=== PATIENT | female | born 1965 | race Caucasian/White ===

== ENCOUNTER → 2017-03-07 | Outpatient (CLI) | payer BC ==
[~2017-03-07] MED LIST: DUEXIS 26.6 MG-1 TAB PO; LEVOXYL0.075 MG PO
== END ==
LOC: COL.VAS 11:04
DX: I86.8 Varicose veins of other specified sites (principal); I82.602 Acute embolism and thrombosis of unspecified veins of left upper extremity; M79.89 Other specified soft tissue disorders

== ENCOUNTER → 2017-12-30 | Outpatient (CLI) | payer BC | LOC: COL.RAD 09:01 | DX: M25.511 Pain in right shoulder (principal); C34.31 Malignant neoplasm of lower lobe, right bronchus or lung | CPT/HCPCS: A9503 ==

== ENCOUNTER 2018-04-13 17:28 | Emergency (ER) | payer BC ==
[~2018-04-13] VITALS: Ht 170.2 cm; Wt 68.2 kg
[2018-04-13 17:31] VITALS: TEMP 98.6
[2018-04-13 17:55] LABS: BASO % 0.4 % (0.0-2.0); EOS % 0.6 % (0-4.0); GRAN # 4.1 (1.4-6.5); GRAN % 79.5 % (42.2-75.2); HEMOGLOBIN 10.3 g/dl (12.5-16.0); LYMPH # 0.3 (1.2-3.4); LYMPH % 6.4 % (20.0-51.0); MEAN CELL VOLUME 91 fl (80.0-100.0); MEAN CORPUSCULAR HEMOGLOBIN 30 pg (27.0-31.0); MEAN CORPUSCULAR HGB CONC 34 g/dl (33.0-37.0); MEAN PLATELET VOLUME 9.4 fl (7.4-10.4); MONO # 0.6 (0.1-0.6); MONO % 12.5 % (1.7-9.3); PLATELET COUNT 146 K/mm3 (130-400); RED BLOOD COUNT 3.39 M/mm3 (4.10-5.30); REDCELL DISTRIBUTION WIDTH-CV 14.4 % (11.5-14.5)
[2018-04-13 17:56] LABS: HEMATOCRIT 30.7 % (37.0-47.0)
[2018-04-13 18:08] LABS: ALBUMIN 3.2 gm/dL (3.5-5.0); BILIRUBIN,TOTAL 1.3 mg/dL (0.0-1.0); CALCIUM 8.5 mg/dL (8.4-10.2); CREATININE, serum 0.65 mg/dL (0.52-1.25); MAGNESIUM 1.9 mg/dL (1.6-2.3); POTASSIUM 3.4 mmol/L (3.4-5.0); TOTAL PROTEIN 6.8 gm/dL (6.4-8.2)
[2018-04-13] MEDS ORDERED: IMODIUM 2MG CAPS2 MG PO (18:12)
[2018-04-13] MEDS ORDERED: K-DUR 10 MEQ T10 MEQ PO (18:13)
[2018-04-13] MEDS ORDERED: ELIQUIS 2.5 PO (18:13)
[2018-04-13] MEDS ORDERED: NORCO 325 MG-101 TAB PO (18:14)
[2018-04-13] MEDS ORDERED: PHENERGAN 25 TA25 MG PO (18:14)
[2018-04-13] MEDS ORDERED: ORAMAGIC PLUS210 ML MM (18:15)
[2018-04-13] MEDS ORDERED: PRINZIDE 12.5 M1 TAB PO (18:16)
[2018-04-13 18:23] LABS: C-REACTIVE PROTEIN 15.9 mg/dL (0.0-0.9)
[2018-04-13] MEDS ORDERED: ZOFRAN ODT4 MG PO (19:47)
[2018-04-13] MEDS ORDERED: PREDNISONE20 MG PO (19:47)
[2018-04-13 20:39] VITALS: BP 96/64; PULSE 105
== END 2018-04-13 20:40 | disposition home or self-care (01) ==
LOC: COL.ER 17:28
PROVIDERS: Emergency Medicine
DX: K52.9 Noninfective gastroenteritis and colitis, unspecified (principal); Z90.710 Acquired absence of both cervix and uterus; Z85.118 Personal history of other malignant neoplasm of bronchus and lung
CPT/HCPCS: J1644; J2060; J2405; J2550; J7030; J7512; Q9967

== ENCOUNTER → 2018-04-15 | Outpatient (CLI) | payer BC ==
[~2018-04-15] MED LIST changes: +ELIQUIS 2.5 PO; +IMODIUM 2MG CAPS2 MG PO; +K-DUR 10 MEQ T10 MEQ PO; +NORCO 325 MG-101 TAB PO; +ORAMAGIC PLUS210 ML MM; +PHENERGAN 25 TA25 MG PO; +PREDNISONE20 MG PO; +PRINZIDE 12.5 M1 TAB PO; +ZOFRAN ODT4 MG PO
== END ==
LOC: ZCOL.LAB 14:35
DX: Z01.89 Encounter for other specified special examinations (principal)

== ENCOUNTER → 2018-05-16 | Day surgery (SDC) | payer BC ==
[~2018-05-16] VITALS: Ht 170.2 cm; Wt 66.4 kg
[~2018-05-16] MED LIST changes: +PRILOTC
[2018-05-16 13:22] VITALS: BP 115/85; PULSE 126; TEMP 97.5
[2018-05-16 14:50] VITALS: BP 107/74; PULSE 107; TEMP 98.5
[2018-05-16 15:05] VITALS: BP 108/75; PULSE 100
[2018-05-16 15:20] VITALS: BP 105/72; PULSE 99
== END ==
LOC: SDCO 12:45
DX: K52.9 Noninfective gastroenteritis and colitis, unspecified (principal); K92.1 Melena; R11.2 Nausea with vomiting, unspecified; K21.9 Gastro-esophageal reflux disease without esophagitis
CPT/HCPCS: J1644; J2250; J2405; J3010; J7030

== ENCOUNTER 2018-08-17 06:15 | Inpatient (IN) | payer BC ==
[~2018-08-17] VITALS: Ht 170.2 cm; Wt 75.7 kg
[2018-08-17] VITALS (462 sets, daily range): BP systolic 99–140; BP diastolic 55–81; PULSE 97–133; TEMP 98.7–101; O2SAT 69–100
[~2018-08-17 06:15] MED LIST changes: +DECADRON 4MG TAB4 MG PO; +MS CONTIN 115 MG/TAB PO; +PREDNISONE 5MG5 MG PO; +REGLAN 10MG10 MG/TAB PO
[2018-08-17 07:13] LABS: MEAN CELL VOLUME 94 fl (80.0-100.0); MEAN CORPUSCULAR HGB CONC 31 g/dl (33.0-37.0); MEAN PLATELET VOLUME 10.9 fl (7.4-10.4); PLATELET COUNT 103 K/mm3 (130-400); RED BLOOD COUNT 2.71 M/mm3 (4.10-5.30); REDCELL DISTRIBUTION WIDTH-CV 16.7 % (11.5-14.5)
[2018-08-17 07:20] LABS: HEMATOCRIT 25.5 % (37.0-47.0); HEMOGLOBIN 7.9 g/dl (12.5-16.0); MEAN CORPUSCULAR HEMOGLOBIN 29 pg (27.0-31.0)
[2018-08-17 07:31] LABS: ALBUMIN 2.2 gm/dL (3.5-5.0); BILIRUBIN,TOTAL 0.4 mg/dL (0.0-1.0); CALCIUM 7.1 mg/dL (8.4-10.2); CREATININE, serum 0.48 mg/dL (0.52-1.25); POTASSIUM 3.1 mmol/L (3.4-5.0); TOTAL PROTEIN 4.9 gm/dL (6.4-8.2)
[2018-08-17 07:43] LABS: COLLECTION METHOD CLEAN CATCH
[2018-08-17 07:50] LABS: BAND 12 % (0-10); LYMPHOCYTE 2 % (20.0-51.0); METAMYELOCYTE 3 % (0-0); NEUTROPHILS 82 % (42.0-75.2); PLATELET ESTIMATE DECREASED (NORMAL)
[2018-08-17 07:50] LABS: MUCOUS Present /lpf; PH 7 (5-8); URINE APPEARANCE Hazy; URINE BACTERIA Rare /hpf; URINE BILIRUBIN Negative (NEGATIVE); URINE BLOOD Negative (NEGATIVE); URINE COLOR Amber; URINE GLUCOSE Negative (NEGATIVE); URINE KETONE Negative (NEGATIVE); URINE LEUKOCYTE ESTERASE Negative (NEGATIVE); URINE NITRATE Negative (NEGATIVE); URINE PROTEIN(semi-quant) 1+ (NEGATIVE); URINE RBC 0-2 /hpf
[2018-08-17 07:52] LABS: ANISOCYTOSIS 2+
[2018-08-17 22:20] LABS: CREATININE, serum 0.41 mg/dL (0.52-1.25); MAGNESIUM 2.6 mg/dL (1.6-2.3); POTASSIUM 4.2 mmol/L (3.4-5.0)
[2018-08-18] VITALS (244 sets, daily range): BP systolic 111–139; BP diastolic 10–89; PULSE 93–109; TEMP 97.7–98.3; O2SAT 85–100
[2018-08-18 05:45] LABS: MEAN CELL VOLUME 97 fl (80.0-100.0); MEAN CORPUSCULAR HGB CONC 30 g/dl (33.0-37.0); MEAN PLATELET VOLUME 11.1 fl (7.4-10.4); PLATELET COUNT 99 K/mm3 (130-400); RED BLOOD COUNT 2.42 M/mm3 (4.10-5.30); REDCELL DISTRIBUTION WIDTH-CV 16.9 % (11.5-14.5)
[2018-08-18 05:47] LABS: HEMATOCRIT 23.4 % (37.0-47.0); MEAN CORPUSCULAR HEMOGLOBIN 29 pg (27.0-31.0)
[2018-08-18 06:00] LABS: BILIRUBIN,TOTAL 0.3 mg/dL (0.0-1.0); CALCIUM 7.1 mg/dL (8.4-10.2); CREATININE, serum 0.39 mg/dL (0.52-1.25); MAGNESIUM 2.5 mg/dL (1.6-2.3); POTASSIUM 3.8 mmol/L (3.4-5.0); TOTAL PROTEIN 4.7 gm/dL (6.4-8.2)
[2018-08-18 06:46] LABS: BAND 19 % (0-10); LYMPHOCYTE 4 % (20.0-51.0); METAMYELOCYTE 2 % (0-0); NEUTROPHILS 70 % (42.0-75.2); PLATELET ESTIMATE NORMAL (NORMAL)
[2018-08-18 06:47] LABS: ANISOCYTOSIS 1+
[2018-08-18 19:32] LABS: HEMATOCRIT 23.7 % (37.0-47.0); HEMOGLOBIN 7.2 g/dl (12.5-16.0)
[2018-08-19] VITALS (10 sets, daily range): BP systolic 116–137; BP diastolic 54–81; PULSE 68–89; TEMP 97.1–98.9
[2018-08-19 06:35] LABS: BILIRUBIN,TOTAL 0.2 mg/dL (0.0-1.0); CALCIUM 7.5 mg/dL (8.4-10.2); CREATININE, serum 0.41 mg/dL (0.52-1.25); MAGNESIUM 2.3 mg/dL (1.6-2.3); POTASSIUM 3.2 mmol/L (3.4-5.0); TOTAL PROTEIN 4.8 gm/dL (6.4-8.2)
[2018-08-19 06:39] LABS: MEAN CELL VOLUME 96 fl (80.0-100.0); MEAN CORPUSCULAR HGB CONC 30 g/dl (33.0-37.0); MEAN PLATELET VOLUME 10.7 fl (7.4-10.4); PLATELET COUNT 127 K/mm3 (130-400); REDCELL DISTRIBUTION WIDTH-CV 16.9 % (11.5-14.5)
[2018-08-19 06:54] LABS: HEMOGLOBIN 6.9 g/dl (12.5-16.0); MEAN CORPUSCULAR HEMOGLOBIN 29 pg (27.0-31.0)
[2018-08-19 08:56] LABS: BAND 18 % (0-10); LYMPHOCYTE 1 % (20.0-51.0); NEUTROPHILS 79 % (42.0-75.2); PLATELET ESTIMATE DECREASED (NORMAL)
[2018-08-19 08:57] LABS: ANISOCYTOSIS 1+
[2018-08-19 14:07] LABS: IRON,SERUM 43 ug/dL (35-150); LACTATE DEHYDROGENASE 513 U/L (313-618)
[2018-08-19 14:16] LABS: TOTAL IRON BINDING CAPACITY 148 ug/dL (265-497)
[2018-08-19 15:29] LABS: FERRITIN 1550 ng/mL (11-264)
[2018-08-20 01:08] LABS: FOLATE (FOLIC ACID) 2.9 ng/mL (7.0-31.4)
[2018-08-20 02:21] VITALS: BP 140/83; PULSE 73; TEMP 97.7
[2018-08-20 06:30] LABS: MEAN CELL VOLUME 92 fl (80.0-100.0); MEAN CORPUSCULAR HGB CONC 31 g/dl (33.0-37.0); MEAN PLATELET VOLUME 10.3 fl (7.4-10.4); PLATELET COUNT 154 K/mm3 (130-400); RED BLOOD COUNT 2.91 M/mm3 (4.10-5.30); REDCELL DISTRIBUTION WIDTH-CV 17.6 % (11.5-14.5)
[2018-08-20 06:42] LABS: HEMATOCRIT 26.8 % (37.0-47.0); HEMOGLOBIN 8.4 g/dl (12.5-16.0); MEAN CORPUSCULAR HEMOGLOBIN 29 pg (27.0-31.0)
[2018-08-20 06:44] LABS: CALCIUM 7.5 mg/dL (8.4-10.2); CREATININE, serum 0.39 mg/dL (0.52-1.25)
[2018-08-20 06:51] LABS: POTASSIUM 2.9 mmol/L (3.4-5.0)
[2018-08-20 07:27] LABS: ANISOCYTOSIS 1+; BAND 11 % (0-10); LYMPHOCYTE 3 % (20.0-51.0); METAMYELOCYTE 2 % (0-0); NEUTROPHILS 81 % (42.0-75.2); PLATELET ESTIMATE NORMAL (NORMAL)
[2018-08-20 08:13] VITALS: BP 138/84; PULSE 84; TEMP 97.4
[2018-08-20] MEDS ORDERED: FOLIC ACID 11 MG/TA1 PO (10:37)
[2018-08-20] MEDS ORDERED: MASON NATURAL2000 IU PO (10:38)
[2018-08-20 11:14] VITALS: BP 134/76; PULSE 94; TEMP 97.6
[2018-08-20 21:26] VITALS: BP 132/75; PULSE 98; TEMP 98.6
[2018-08-21 01:39] VITALS: BP 131/81; PULSE 123; TEMP 98.4
[2018-08-21 07:43] LABS: BASO % 0.2 % (0.0-2.0); GRAN # 12.1 (1.4-6.5); GRAN % 90.8 % (42.2-75.2); LYMPH # 0.3 (1.2-3.4); LYMPH % 2.6 % (20.0-51.0); MEAN CELL VOLUME 93 fl (80.0-100.0); MEAN CORPUSCULAR HGB CONC 31 g/dl (33.0-37.0); MONO # 0.7 (0.1-0.6); MONO % 5.2 % (1.7-9.3); PLATELET COUNT 155 K/mm3 (130-400); RED BLOOD COUNT 3.24 M/mm3 (4.10-5.30); REDCELL DISTRIBUTION WIDTH-CV 17.9 % (11.5-14.5)
[2018-08-21 07:45] LABS: HEMATOCRIT 30.1 % (37.0-47.0); HEMOGLOBIN 9.4 g/dl (12.5-16.0); MEAN CORPUSCULAR HEMOGLOBIN 29 pg (27.0-31.0)
[2018-08-21 07:57] LABS: ANION GAP 3 mmol/L (7-16); CALCIUM 7.8 mg/dL (8.4-10.2); CARBON DIOXIDE 30 mmol/L (22-30); CHLORIDE 100 mmol/L (98-107); CREATININE, serum 0.37 mg/dL (0.52-1.25); GLUCOSE 90 mg/dL (74-106); POTASSIUM 3.5 mmol/L (3.4-5.0); SODIUM 132 mmol/L (137-145)
[2018-08-21 08:00] LABS: BLOOD UREA NITROGEN < 2 mg/dL (7-17)
[2018-08-21 08:17] VITALS: BP 110/75; PULSE 13; TEMP 98.8
[2018-08-21 11:15] VITALS: BP 123/72; PULSE 120; TEMP 98.2
[2018-08-21 11:28] LABS: INR 1.3 (0.8-3.0); PROTHROMBIN TIME 14.9 SECONDS (9.7-12.8)
== END 2018-08-21 16:55 | disposition home or self-care (01) | DRG 872 ==
LOC: COL.ER 06:15 → MEDICAL 08:03 → ICU 08:03 → MEDICAL 08-18 10:40
PROVIDERS: Emergency Medicine; Hospitalist; Internal Medicine; Internal Medicine Pulmonary Disease; Physician Assistant
DX: A41.9 Sepsis, unspecified organism (principal); J90 Pleural effusion, not elsewhere classified; E87.1 Hypo-osmolality and hyponatremia; C34.81 Malignant neoplasm of overlapping sites of right bronchus and lung; C79.51 Secondary malignant neoplasm of bone; C78.02 Secondary malignant neoplasm of left lung; D61.818 Other pancytopenia; E87.6 Hypokalemia; Z87.891 Personal history of nicotine dependence; R65.20 Severe sepsis without septic shock; E83.51 Hypocalcemia
CPT/HCPCS: 99223-AI; 99233-AI; 99239; J0692; J1644; J1720; J1956; J2405; J3370; J3475; J3480; J7030; J7050; P9016; Q9967

== ENCOUNTER → 2018-10-21 | Outpatient (CLI) | payer BC ==
[~2018-10-21] MED LIST changes: +FOLIC ACID 11 MG/TA1 PO; +MASON NATURAL2000 IU PO
== END ==
LOC: COL.RAD 10-17 10:30
DX: C34.31 Malignant neoplasm of lower lobe, right bronchus or lung (principal); R59.0 Localized enlarged lymph nodes; N28.1 Cyst of kidney, acquired; K86.2 Cyst of pancreas; J90 Pleural effusion, not elsewhere classified; Z90.710 Acquired absence of both cervix and uterus
CPT/HCPCS: Q9967

== ENCOUNTER → 2019-01-09 | Outpatient (CLI) | payer BC | LOC: COL.RAD 01-05 13:00 | DX: C34.31 Malignant neoplasm of lower lobe, right bronchus or lung (principal); C79.51 Secondary malignant neoplasm of bone; C79.89 Secondary malignant neoplasm of other specified sites; C77.1 Secondary and unspecified malignant neoplasm of intrathoracic lymph nodes; J90 Pleural effusion, not elsewhere classified; N28.1 Cyst of kidney, acquired; K86.2 Cyst of pancreas; J01.20 Acute ethmoidal sinusitis, unspecified; J01.30 Acute sphenoidal sinusitis, unspecified; H74.8X3 Other specified disorders of middle ear and mastoid, bilateral; Z90.710 Acquired absence of both cervix and uterus | CPT/HCPCS: Q9967 ==

== ENCOUNTER 2019-01-30 07:36 | Outpatient (CLI) | payer BC ==
[~2019-01-30] VITALS: Ht 170.2 cm; Wt 55.1 kg
[2019-01-30] VITALS (7 sets, daily range): BP systolic 105–134; BP diastolic 68–86; PULSE 101–127
[~2019-01-30 07:36] MED LIST changes: +MYCELEX10 MG/TAB MM; +ZOVIRAX400 MG PO
[2019-01-30] MEDS ORDERED: ILOTYCIN5 MG/GM OP (07:54)
--- NOTE | 2019-01-30 08:45 | NUR ---
Pt to [facility] 9 per cart s/p LP. Pt resting well, at bedside.
[2019-01-30 09:26] LABS: CSF MONONUCLEAR 47 % (70-100); CSF POLYMORPHONUCLEAR 53 % (0-6); CSF RBC 0 /mm3 (0-0)
[2019-01-30 09:45] LABS: GLUCOSE,CSF < 20 mg/dL (40-70)
--- NOTE | 2019-01-30 09:52 | NUR ---
Pt up with SBA to wheelchair, iain PO intake s n/v.
--- NOTE | 2019-01-30 10:00 | NUR ---
Pt discharged per w/c by nurse with .
[2019-01-30 11:24] LABS: TOTAL PROTEIN,CSF 1263 mg/dL (15-45)
[2019-01-30 12:08] LABS: CSF APPEARANCE CLEAR; CSF COLOR YELLOW
== END 2019-01-30 10:26 | disposition home or self-care (01) ==
LOC: COL.RAD 07:36
PROVIDERS: Internal Medicine
DX: C34.31 Malignant neoplasm of lower lobe, right bronchus or lung (principal); C78.01 Secondary malignant neoplasm of right lung; C78.02 Secondary malignant neoplasm of left lung; C79.2 Secondary malignant neoplasm of skin; C79.51 Secondary malignant neoplasm of bone